=== PATIENT | male | born 1970 | race Caucasian/White ===

== ENCOUNTER 2023-10-06 12:00 | Emergency (ER) | payer BC, SELFPAY ==
[2023-10-06] MEDS ORDERED: Acetaminophen 500 MG TAB ONE (13:14)
[2023-10-06 13:17] LABS: #Basophils 0.1 thou/uL (0.0-0.2); #Lymphocytes 0.7 thou/uL (1.20-3.40); #Neutrophils 11.5 thou/uL (1.40-6.50); %Basophils 0.8 % (0.0-1.0); %Monocytes 7.2 % (0.0-10.0); %Neutrophils 86.9 % (42.0-75.0); Hematocrit 46.1 % (42.0-52.0); Hemoglobin 15.3 g/dL (14.0-18.0); Mean Corpuscular HGB CONC 33.1 g/dL (32.0-36.0); Mean Corpuscular Hemoglobin 30.9 pg (27.0-31.0); Mean Corpuscular Volume 93.3 fl (78.0-98.0); Platelet Count 278 10x3/uL (130-400); RBC Distribution Width 10.9 % (11.5-14.5); Red Blood Cell (RBC) Count 4.94 mill/uL (4.70-6.10); White Blood Cell (WBC) Count 13.2 10x3/uL (4.8-10.8)
[2023-10-06 13:18] LABS: Amphetamine Not Detected (NotDetected); Barbiturates Screen Not Detected (NotDetected); Benzodiazepine Screen Not Detected (NotDetected); Cocaine Metabolite Screen Not Detected (NotDetected); Methadone Not Detected (NotDetected); Methamphetamine Not Detected (NotDetected); Opiate Screen Not Detected (NotDetected); Oxycodone Screen Not Detected (NotDetected); Phencyclidine (PCP) Not Detected (NotDetected); THC/Cannabinoid Screen Detected (NotDetected); Tricyclic Screen Not Detected (NotDetected)
[2023-10-06 13:20] LABS: Bilirubin Negative (Negative); Blood, Urine Negative (Negative); Clarity Clear (Clear); Glucose, Urine (Dipstick) Negative (Negative); Ketone, Urine 15 mg/dL (Negative); Leukocyte Negative (Negative); Nitrite Negative (Negative); Protein, Urine (Dipstick) Trace mg/dL (Neg-Trace); RBC/HPF 0-3 HPF (0-3); Specific Gravity, Urine 1.026 (1.002-1.036); Urobilinogen 0.2 mg/dL (Less than 2); pH, Urine 5.5 (5.0-9.0)
[2023-10-06 13:21] LABS: Bacteria/HPF Rare-Few HPF (None Seen); CAUTI Indications for Culture Fever or rigors; Squamous Epithelial 0-3 HPF (0-3); WBC/HPF 0-3 HPF (0-3)
[2023-10-06 13:22] LABS: Urine Culture Reflex No No
[2023-10-06 13:31] LABS: ALT (SGPT) 14 U/L (8-55); AST (SGOT) 15 U/L (5-34); Albumin 4.2 g/dL (3.5-5.0); Alkaline Phosphatase 68 U/L (40-110); Anion Gap 19 mmol/L (10-20); BUN (Urea Nitrogen) 17 mg/dL (8.4-25.7); Bilirubin, Total 0.7 mg/dL (0.2-1.2); Calc. Creatinine Clearance 0 mL/min (70-130); Calcium 8.9 mg/dL (7.8-10.44); Carbon Dioxide 21 mmol/L (22-29); Chloride 100 mmol/L (98-107); Estimated GFR 66; Globulin 2.8 g/dL (2.4-3.5); Glucose 129 mg/dL (70-105); Potassium 3.9 mmol/L (3.5-5.1); Sodium 136 mmol/L (136-145)
[2023-10-06 13:48] LABS: Troponin I Less than 0.010 ng/mL (< 0.028)
[2023-10-06 14:13] LABS: SARS-CoV-2 NAA Rapid Test Not Detected (NotDetected)
[2023-10-06] MEDS ORDERED: Sodium Chloride 0.9% 250 ML 500 ML ONE (16:45)
[2023-10-06] MEDS ORDERED: Vancomycin 1 GM VIAL ONE (16:45)
[2023-10-06] MEDS ORDERED: Vancomycin HCl 750 MG VIAL ONE (16:45)
[2023-10-06] MEDS ORDERED: Sodium Chloride 0.9% 100 ML ONE (16:45)
[2023-10-06] MEDS ORDERED: cefTRIAXone (ROCEPHIN) 2 GM VIAL ONE (16:45)
[2023-10-06] MEDS ORDERED: Ibuprofen 600 MG TAB ONE (17:36)
[2023-10-06 18:12] LABS: Color Of CSF Supernatant COLORLESS (Colorless); Tube # 2; Unspun CSF Color COLORLESS (Colorless)
[2023-10-06 18:18] LABS: CSF, Glucose 77 mg/dl (40-70); CSF, Protein 58.8 mg/dL (15-40)
[2023-10-06 20:08] LABS: CSF Source CSF; Clarity Hazy (Clear); Tube # 4
[2023-10-06 20:37] LABS: Cell Count Non Hematic 4 %; Lymphocytes 26 %; Segmented Neutrophils 70 %
[2023-10-06] MEDS ORDERED: Ondansetron PF 4 MG/2 ML Vial IVP PRN (21:45)
[2023-10-06] MEDS ORDERED: Acetaminophen 325 MG TAB PO PRN (21:45)
[2023-10-06] MEDS ORDERED: Ondansetron ODT 4 MG TAB SL PRN (21:45)
[2023-10-11 13:37] LABS: West Nile Virus IgG Ab - CSF Negative (Negative); West Nile Virus IgM Ab - CSF Negative (Negative)
== END 2023-10-06 19:48 | disposition short-term general hospital (02) ==
LOC: MADERS 12:00
DX: R41.82 Altered mental status, unspecified (principal); R50.9 Fever, unspecified; I10 Essential (primary) hypertension; Z79.899 Other long term (current) drug therapy
CPT/HCPCS: 36416; 62270; 70450; 71045; 80053; 80306; 81001; 82550; 82945; 83605; 84157; 84484; 85025; 85060; 86788; 86789; 87040; 87070; 87205; 87804; 89051; 93005; 96361; 96365; 96375; J0696; J3370; J7050; U0002